=== PATIENT | male | born 1980 | race Caucasian/White ===

== ENCOUNTER 2017-03-20 17:38 | Emergency (ER) | payer OTHER ==
[2017-03-20] MEDS ORDERED: SUBLIMAZE 100 MCG/2 ML ONE (17:45)
[2017-03-20] MEDS ORDERED: BENADRYL 50 MG/ML ONE (17:52)
[2017-03-20] MEDS ORDERED: MORPHINE SULFATE 10 MG/ML ONE ×2 (17:52→18:27)
[2017-03-20] MEDS ORDERED: BENADRYL 50 MG/ML IV ONE (17:55)
[2017-03-20] MEDS ORDERED: SUBLIMAZE 100 MCG/2 ML INTRANASAL ONE (17:55)
[2017-03-20] MEDS ORDERED: MORPHINE SULFATE 10 MG/ML IV ONE ×2 (17:55→18:20)
[2017-03-20] MEDS ORDERED: Sodium Chloride 0.9% 1000 ML 1,000 ML IV SCH (18:00)
--- NOTE | 2017-03-20 18:11 | ERPHSYRPT ---
- History of Present Illness Time Seen by Provider: 03/20/17 17:54 Source: patient, family (brother) Patient Subjective Stated Complaint: pt had log roll on right leg and now has deformity to right ankle. no other injuries Triage Nursing Assessment: pt has swelling and deformity to right ankle, abrasions noted. pt denies any other injury , ate last at 1500 Physician History: CC: right leg injury Hx: 37 y/o patient of Dr Reyes was working at [employer] and a log across a lumbee rolled onto his right ankle. He has pain, swelling right ankle. No N/T/W. No other injuries. No neck or back pain. No chest or abd pain. Pain severe- almost passed out form the pain. Last ate/drank at 3PM. Surg: None ILL: None ALL: None Meds: Motrin Social: Here with brother Occurred: just prior to arrival Lower Extremities Pain: ankle: right Allergies/Adverse Reactions: No Known Drug Allergies Allergy (Unverified 03/20/17 17:54) Home Medications: No Reportable Medications [No Reported Medications] 03/20/17 [History] Hx Tetanus, Diphtheria Vaccination/Date Given: Yes Hx Influenza Vaccination/Date Given: No Hx Pneumococcal Vaccination/Date Given: No Immunizations Up to Date: Yes - Review of Systems Constitutional: No Symptoms Respiratory: No Dyspnea Cardiac: No Chest Pain, No Syncope Abdominal/Gastrointestinal: No Abdominal Pain, No Vomiting Musculoskeletal: Injury (right lower leg), No Back Pain, No Neck Pain Neurological: No Focal Weakness, No Headache, No Parasthesia All Other Systems: Reviewed and Negative - Past Medical History Pertinent Past Medical History: No - Past Surgical History Past Surgical History: No - Social History Smoking Status: Current some day smoker Exposure to second hand smoke: Yes Drug Use: none Patient Lives Alone: No - Nursing Vital Signs Nursing Vital Signs: Initial Vital Signs Temperature 97.2 F 03/20/17 17:42 Pulse Rate 87 03/20/17 17:42 Respiratory Rate 18 03/20/17 17:42 Blood Pressure 144/76 03/20/17 17:42 O2 Sat by Pulse Oximetry 98 03/20/17 17:42 Pain Scale Pain Intensity 6 - Physical Exam General Appearance: alert Eyes, Ears, Nose, Throat Exam: normal ENT inspection, moist mucous membranes Neck Exam: normal inspection, non-tender, supple Cardiovascular/Respiratory Exam: chest non-tender, normal breath sounds, regular rate/rhythm Gastrointestinal/Abdominal Exam: non-tender, soft Back Exam: normal inspection, normal range of motion, No vertebral tenderness Neuro/Tendon Exam: normal sensation, normal motor functions Mental Status Exam: alert, oriented x 3, cooperative Skin Exam: warm, dry SpO2 Interpretation: normal SpO2: 98 Oxygen Delivery: Room Air Comments: swelling, tenderness, mild deformity above right ankle. Foot nontender with intact pulses and cap refill and ROM. No knee or femur tenderness. Skin has some abrasion. He had concrete dust on upper extr which was washed off with wet cloths on arrival. Procedures - Splinting Location of Splint: Right Splint Applied By: ED Physician Pre-Proc Neuro Vasc Exam: normal Post-Proc Neuro Vasc Exam: neurovascular intact Progress: Right lower leg long lg posterior and right ankle stirrup orthoglass placed. Good cap refill post splint. - Course Nursing assessment & vital signs reviewed: Yes - Radiology Exams right low leg X-ray Interpretation: Interpreted by me (comminuted high fibular fracture, medial malleolus fx) Ordered Tests: Active Orders 24 hr Category Date Time Status IV Insertion STAT Care 03/20/17 17:55 Active NPO (ED) STAT Care 03/20/17 17:55 Active Splint STAT Care 03/20/17 17:56 Active LOWER LEG Stat Exams 03/20/17 17:55 Taken Medication Summary Generic Name Dose Route Start Last Admin Trade Name Freq PRN Reason Stop Dose Admin Sodium Chloride 1,000 mls @ 100 mls/hr 03/20/17 18:00 03/20/17 18:24 Sodium Chloride 0.9% 1000 Ml IV 04/19/17 17:59 100 mls/hr .Q10H WILEY Administration Discontinued Medications Generic Name Dose Route Start Last Admin Trade Name Freq PRN Reason Stop Dose Admin Diphenhydramine HCl Confirm 03/20/17 17:52 Benadryl 50 Mg/Ml Administered 03/20/17 17:53 Dose 50 mg .ROUTE .STK-MED ONE Diphenhydramine HCl 35 mg 03/20/17 17:55 03/20/17 18:16 Benadryl 50 Mg/Ml IV 03/20/17 17:56 35 mg STAT ONE Administration Diphtheria/Tetanus/Acell Pertussis 0.5 ml 03/20/17 18:41 Adacel Vial IM 03/20/17 18:42 .ONCE ONE Fentanyl Citrate Confirm 03/20/17 17:45 Sublimaze 100 Mcg/2 Ml Administered 03/20/17 17:46 Dose 100 mcg .ROUTE .STK-MED ONE Fentanyl Citrate 100 mcg 03/20/17 17:55 03/20/17 17:56 Sublimaze 100 Mcg/2 Ml INTRANASAL 03/20/17 17:56 100 mcg STAT ONE Administration Morphine Sulfate Confirm 03/20/17 17:52 Morphine Sulfate 10 Mg/Ml Administered 03/20/17 17:53 Dose 10 mg .ROUTE .STK-MED ONE Morphine Sulfate 6 mg 03/20/17 17:55 03/20/17 18:16 Morphine Sulfate 10 Mg/Ml IV 03/20/17 17:56 6 mg STAT ONE Administration Morphine Sulfate 6 mg 03/20/17 18:20 03/20/17 18:28 Morphine Sulfate 10 Mg/Ml IV 03/20/17 18:21 6 mg STAT ONE Administration Morphine Sulfate Confirm 03/20/17 18:27 Morphine Sulfate 10 Mg/Ml Administered 03/20/17 18:28 Dose 60 mg .ROUTE .STK-MED ONE - Progress Progress Note: 03/20/17 18:11 Nasal fentanyl given on arrival. Left hand 20 ga PIC placed and morphine and benadryl given IV. Will get xray. Advised NPO. 03/20/17 18:56 This is somewhat crush injury with high fx. Pt chose [facility]. Called [facility] transfer center and spoke to Dr Nataliia Pineda for ER transfer for orthopedics. Counseled pt/family regarding: diagnosis, need for follow-up, rad results - Departure Time of Disposition: 18:57 Departure Disposition: Transfer ([facility] ER) Clinical Impression: bimalleolar comminuted ankle fracture Condition: Stable Critical Care Time: No Referrals: ASHLEE REYES [Primary Care Provider] -
[2017-03-20] MEDS ORDERED: Sodium Chloride 0.9% 1000 ML 1,000 ML ONE (18:19)
[2017-03-20] MEDS ORDERED: Adacel Vial IM ONE ×2 (18:41→19:07)
[2017-03-20 19:10] VITALS: O2SAT 96
[2017-03-20 19:54] VITALS: BP 138/65; PULSE 82
--- NOTE | 2017-03-21 09:04 | XRAY ---
Indication: Pain following injury. Comparison: None 2 views of the right lower leg demonstrates mildly displaced and slightly comminuted distal fibular shaft oblique fracture and nondisplaced medial malleolar fracture with soft tissue swelling and overlying splint material. No other bony, articular, or soft tissue abnormalities.
== END 2017-03-20 19:54 | disposition short-term general hospital (02) ==
LOC: ED 17:38
PROC: 2W3QX1Z Immobilization of Right Lower Leg using Splint (ICD-10-PCS; principal; 2017-03-20)
DX: S82.841A Displaced bimalleolar fracture of right lower leg, initial encounter for closed fracture (principal); W20.8XXA Other cause of strike by thrown, projected or falling object, initial encounter
CPT/HCPCS: 10060; 29505; 36000; 73590; 90471; 90715; 96360; 96374; 96375; 99284; J1200; J2270; J3010